=== PATIENT | female | born 1935 | race Caucasian/White ===

== ENCOUNTER → 2016-08-09 | Outpatient (REF) | payer MEDICARE, OTHER | LOC: M LAB REF 12:33 | PROVIDERS: ATTEND Nurse Practitioner Adult Health | DX: E83.52 Hypercalcemia (principal) ==

== ENCOUNTER → 2016-11-02 | Outpatient (CLI) | payer MEDICARE, OTHER ==
--- NOTE | 2016-11-02 09:50 | REPMRS ---
Patient History The patient states she has not had a clinical breast exam in over a year. Patient is postmenopausal. Family history of breast cancer in sister at age 66. Digital Mammo Screening Bilat: November 02, 2016 - Exam #: [id number] Bilateral CC and MLO view(s) were taken. Technologist: Desiree Eason, Technologist Prior study comparison: November 02, 2015, bilateral digital mammo screening bilat performed at [facility]. October 14, 2014, digital woman screen mammo, performed at [facility]. FINDINGS: There are scattered fibroglandular densities. There has been no change in the appearance of the mammogram from the prior studies. There is a mild amount of residual fibroglandular tissue which is fairly symmetric. There is no interval development of dominant mass, architectural distortion, or clustered microcalcification suggestive of malignancy. ASSESSMENT: BI-RADS/ACR category 1 mammogram. Negative. Recommendation Routine screening mammogram in 1 year (for women over age 40). This mammogram was interpreted with the aid of an FDA-approved computer-aided dectection system. Electronically Signed By: Alfredo Monique MD 11/02/16 [id number]
== END ==
LOC: M RAD 08:18
PROVIDERS: ATTEND Nurse Practitioner Adult Health
DX: Z12.31 Encounter for screening mammogram for malignant neoplasm of breast (principal); Z78.0 Asymptomatic menopausal state; Z80.3 Family history of malignant neoplasm of breast

== ENCOUNTER → 2017-07-03 | Outpatient (REF) | payer MEDICARE, OTHER | LOC: M LAB REF 16:27 | DX: N39.0 Urinary tract infection, site not specified (principal) | CPT/HCPCS: 87088; 87186 ==

== ENCOUNTER → 2017-08-16 | Outpatient (REF) | payer MEDICARE, OTHER | LOC: M LAB REF 10:06 | DX: N39.0 Urinary tract infection, site not specified (principal) | CPT/HCPCS: 87186 ==

== ENCOUNTER → 2017-08-18 | Outpatient (CLI) | payer MEDICARE, OTHER | LOC: M WUC 15:30 | DX: R10.32 Left lower quadrant pain (principal) | CPT/HCPCS: 74021 ==

== ENCOUNTER → 2017-12-04 | Outpatient (CLI) | payer MEDICARE, OTHER | LOC: M RAD 09:38 | DX: Z12.31 Encounter for screening mammogram for malignant neoplasm of breast (principal) | CPT/HCPCS: 77067 ==

== ENCOUNTER → 2018-09-07 | Outpatient (REF) | payer MEDICARE, OTHER ==
[~2018-09-07] MED LIST: AMLO5TAB6; AUGM875T28 PO; DOXY-350 PO; GUAI1SOL2 PO; HYDR25TAB PO; LOSA25TA14; MONT10TA2; ZITHTAB PO
== END ==
LOC: M LAB REF 12:16
PROVIDERS: ATTEND Physician Assistant
DX: R30.0 Dysuria (principal)

== ENCOUNTER → 2018-09-27 | Outpatient (REF) | payer MEDICARE, OTHER ==
[2018-09-27 19:09] LABS: APPEARANCE, URINE CLEAR (CLEAR); BACTERIA, URINE AUTO 3+ (NEGATIVE); BILIRUBIN, URINE AUTO NEGATIVE (NEGATIVE); BLOOD, URINE BLOOD NEGATIVE (NEGATIVE); COLOR, URINE YELLOW (YELLOW); GLUCOSE, URINE (UA) AUTO NEGATIVE (NEGATIVE); KETONE, URINE AUTO TRACE mg/dL (NEGATIVE); LEUKOCYTE ESTERASE, URINE AUTO 3+ (NEGATIVE); NITRITE, URINE AUTO NEGATIVE (NEGATIVE); PROTEIN, URINE AUTO NEGATIVE (NEGATIVE); RBC, URINE AUTO 9 /HPF (0-3); SQUAMOUS EPITHELIAL CELL UR AU 0 /HPF (0-6); UROBILINOGEN, URINE AUTO 0.2 mg/dL (0.0-2.0); WBC, URINE AUTO 118 /HPF (0-3)
== END ==
LOC: M LAB REF 16:50
PROVIDERS: ATTEND Physician Assistant
DX: N39.0 Urinary tract infection, site not specified (principal)

== ENCOUNTER → 2018-12-11 | Outpatient (CLI) | payer MEDICARE, OTHER ==
--- NOTE | 2018-12-11 13:10 | REPMRS ---
Patient History The patient states she has not had a clinical breast exam in over a year. Family history of breast cancer at age 66 in sister. 3D TOMOSYNTHESIS WAS PERFORMED. The [facility] lifetime risk for breast cancer is 0.7%. Digital Mammo Screening Bilat: December 11, 2018 - Exam #: [id number] Bilateral CC and MLO view(s) were taken. Technologist: Mary Walter, Technologist Prior study comparison: December 04, 2017, bilateral digital mammo screening bilat performed at [facility]. November 02, 2016, bilateral digital mammo screening bilat performed at [facility]. FINDINGS: There are scattered fibroglandular densities. There has been no change in the appearance of the mammogram from the prior studies. There is a mild amount of residual fibroglandular tissue which is fairly symmetric. There is no interval development of dominant mass, architectural distortion, or clustered microcalcification suggestive of malignancy. Assessment: BI-RADS/ACR category 1 mammogram. Negative Mammogram. Recommendation Routine screening mammogram in 1 year (for women over age 40). This mammogram was interpreted with the aid of an FDA-approved computer-aided dectection system. Electronically Signed By: Alfredo Monique MD 12/11/18 [id number]
== END ==
LOC: M RAD 12:27
PROVIDERS: ATTEND Nurse Practitioner Adult Health
DX: Z12.31 Encounter for screening mammogram for malignant neoplasm of breast (principal); Z80.3 Family history of malignant neoplasm of breast

== ENCOUNTER → 2019-12-27 | Outpatient (CLI) | payer MEDICARE, OTHER ==
[~2019-12-27] MED LIST changes: +AMLO1TAB24; -AMLO5TAB6; -MONT10TA2; +MONT10TA4
--- NOTE | 2019-12-27 12:39 | REPMRS ---
Patient History The patient states she has not had a clinical breast exam in over a year. Patient is postmenopausal. Family history of breast cancer at age 66 in sister, colorectal cancer at age 50 or over in mother. No Hormone Replacement Therapy 3D TOMOSYNTHESIS WAS PERFORMED. RADHA Rodriguez. Digital Woman Screen Mammo: December 27, 2019 - Exam #: [id number] Bilateral CC and MLO view(s) were taken. Technologist: Amarilis Ge, Technologist Prior study comparison: December 11, 2018, bilateral digital mammo screening bilat, performed at [facility]. December 04, 2017, bilateral digital mammo screening bilat, performed at [facility]. FINDINGS: There are scattered fibroglandular densities. There has been no change in the appearance of the mammogram from the prior studies. There is a mild amount of residual fibroglandular tissue which is fairly symmetric. There is no interval development of dominant mass, architectural distortion, or clustered microcalcification suggestive of malignancy. Assessment: BI-RADS/ACR category 1 mammogram. Negative Mammogram. Recommendation Routine screening mammogram in 1 year (for women over age 40). This mammogram was interpreted with the aid of an FDA-approved computer-aided dectection system. Electronically Signed By: Alfredo Monique MD 12/27/19 [id number]
--- NOTE | 2019-12-31 15:52 | DEXA ---
AP SPINE L1 - L4 1.190 0.0 1.9 LT FEMUR TOTAL 0.840 -1.3 1.0 LT NECK 0.834 -1.5 1.0 RT FEMUR TOTAL 0.774 -1.9 0.5 RT NECK 0.810 -1.6 0.8 TOTAL BODY TOTAL OTHER COMMENTS: Normal bone densitometry of the spine. There is low bone density of the hips. The density of the spine is increased 5.1% since the initial exam on 09/08/1998. The decreased 1.6% since the most recent exam on 10/14/2014. The density of the left hip has decreased 8.4% since the initial exam on 09/08/1998. The density of the left hip has decreased 9.2% since the most recent exam on 10/14/2014. The density of the right hip has decreased 6.3% since the initial exam on 09/08/1998. The density of the right hip has decreased 11.0% since the most recent exam on 10/14/2014. FOLLOW-UP: Recommendation for the next bone density exam: 2 Years. ALDO
== END ==
LOC: M WHC 10:57
PROVIDERS: ATTEND Nurse Practitioner Adult Health
DX: Z12.31 Encounter for screening mammogram for malignant neoplasm of breast (principal); Z80.3 Family history of malignant neoplasm of breast; Z80.0 Family history of malignant neoplasm of digestive organs; M85.851 Other specified disorders of bone density and structure, right thigh; M85.852 Other specified disorders of bone density and structure, left thigh

== ENCOUNTER 2020-08-01 11:15 | Emergency (ER) | payer MEDICARE, OTHER ==
[~2020-08-01] VITALS: Ht 154.9 cm; Wt 63.6 kg
[~2020-08-01 11:15] MED LIST changes: +HYDR-3490 PO; -HYDR25TAB PO; +MONT10TA10; -MONT10TA4
[2020-08-01] MEDS ORDERED: AMLO1TAB25 PO (11:39)
[2020-08-01] MEDS ORDERED: CENTCHW4 PO (11:39)
[2020-08-01] MEDS ORDERED: CALCTAB89 PO (11:39)
[2020-08-01] MEDS ORDERED: DOXY100T PO (11:39)
[2020-08-01] MEDS ORDERED: ECOT81TA5 PO (11:39)
[2020-08-01] MEDS ORDERED: PRESCAP PO (11:39)
[2020-08-01] MEDS ORDERED: MORPHINE 2 MG/ML 1ML VIAL (J2270) IV PRN (11:45)
[2020-08-01] MEDS: ONDANSETRON 4MG/2ML VIAL IV ONE ×2 (11:45→15:26)
[2020-08-01 11:56] LABS: BASO % 0.4 % (0.0-1.0); EOS # 0.1 10^3/uL (0.0-0.5); EOS % 1.2 % (0.0-3.0); HEMATOCRIT 36.7 % (36.0-47.0); HEMOGLOBIN 12.3 g/dl (12.0-15.5); LYMPH # 2.4 10^3/uL (1.5-5.0); LYMPH % 28.5 % (24.0-44.0); MEAN CORPUSCULAR HEMOGLOBIN 30.4 pg (27.0-33.0); MEAN CORPUSCULAR HGB CONC 33.5 g/dl (32.0-36.5); MEAN CORPUSCULAR VOLUME 90.6 fl (80.0-96.0); MONO # 0.8 10^3/uL (0.0-0.8); NEUTROPHILS # 5.1 10^3/uL (1.5-8.5); NEUTROPHILS % 60.5 % (36.0-66.0); PLATELET COUNT, AUTOMATED 444 10^3/uL (150-450); RED BLOOD COUNT 4.05 10^6/uL (4.00-5.40); WHITE BLOOD COUNT 8.4 10^3/uL (4.0-10.0)
[2020-08-01 12:09] LABS: INR 1.04; PROTHROMBIN TIME 13.8 SECONDS (12.5-14.3)
--- NOTE | 2020-08-01 12:13 | REP ---
INDICATION: CHEST PAIN. COMPARISON: 09/03/2012. TECHNIQUE: Single portable AP view of the chest was performed. FINDINGS: There is no acute infiltrate or pulmonary edema. The heart does not appear to be significantly enlarged. The thoracic aorta is normal in caliber with mild atherosclerotic calcification. The mediastinal silhouette is otherwise unremarkable. IMPRESSION: No acute pulmonary disease. <Electronically signed by Alfredo Monique > 08/01/20 [id number]
[2020-08-01 12:28] LABS: ALBUMIN 3.4 GM/DL (3.2-5.2); ALT/SGPT 21 U/L (12-78); BILIRUBIN,DIRECT 0.2 MG/DL (0.0-0.2); BILIRUBIN,TOTAL 0.8 MG/DL (0.2-1.0); CK-MB VALUE MASS < 1.0 NG/ML (<3.6); CPK CREATINE PHOSPHOKINASE 46 U/L (26-192); LIPASE 130 U/L (73-393); MB/CK RELATIVE INDEX 2.17 (< OR =4); TOTAL PROTEIN 6.4 GM/DL (6.4-8.2); TROPONIN I < 0.02 NG/ML (< 0.10)
[2020-08-01] MEDS ORDERED: ISOVUE-370 76% 100ML VIAL As Ordered ONE (13:11)
--- NOTE | 2020-08-01 13:55 | REP ---
INDICATION: CP. COMPARISON: Radiograph today. TECHNIQUE: CT angiogram chest performed following the intravenous administration of 100 cc of Isovue 370. Sagittal and coronal reconstruction images are performed. FINDINGS: Lungs: There are mild dependent fibro atelectatic changes. There are 2 small bullae in the superior left lower lobe. Mediastinum: No adenopathy. Pulmonary arteries: No evidence of pulmonary embolism. Jennifer: No adenopathy. Axilla: No adenopathy. Pleura: No effusion. Heart: Mildly enlarged. Thoracic aorta: No aneurysm or dissection. Upper abdominal structures: Multiple hypodensities in the liver. These appear to represent cysts, the largest is in the inferior right lobe and measures approximately 9.3 cm in maximum diameter. Multiple subcentimeter hypodensities are too small to accurately characterize. There is a 3.4 cm right renal cyst. Visualized osseous structures: There are mild degenerative changes of the spine without compression deformity. IMPRESSION: No CT evidence of pulmonary embolism. No infiltrate seen. <Electronically signed by Alfredo Monique > 08/01/20 [id number]
[2020-08-01] MEDS ORDERED: ACETAMINOPHEN 500 MG TAB PO ONE (14:10)
--- NOTE | 2020-08-01 15:17 | ECGEPIP ---
[facility] - ED Test Date: 2020-08-01 Pat Name: CHESTER LUJAN Department: Room: - Gender: Female Industrial Designer: JANN : 1935 Requested By: Roxi Davis Order Number: [id number] Reading MD: Roxi Davis Measurements Intervals Hoffman Rate: 73 P: 64 WY: 156 QRS: -12 QRSD: 86 T: 21 QT: 388 QTc: 427 Interpretive Statements Normal sinus rhythm irbbb No prior Electronically Signed on 08-01-2020 15:16:52 EDT by Roxi Davis
--- NOTE | 2020-08-01 15:20 | ECGEPIP ---
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
[2020-08-01 15:42] LABS: CK-MB VALUE MASS < 1.0 NG/ML (<3.6); CPK CREATINE PHOSPHOKINASE 43 U/L (26-192); MB/CK RELATIVE INDEX 2.33 (< OR =4); TROPONIN I < 0.02 NG/ML (< 0.10)
[2020-08-01 15:55] VITALS: BP 154/66
== END 2020-08-01 16:02 | disposition home or self-care (01) ==
LOC: M ED 11:15
DX: R07.9 Chest pain, unspecified (principal); I45.10 Unspecified right bundle-branch block; I10 Essential (primary) hypertension; Z86.73 Personal history of transient ischemic attack (TIA), and cerebral infarction without residual deficits; Z87.891 Personal history of nicotine dependence; Z79.899 Other long term (current) drug therapy
CPT/HCPCS: 36415; 71045; 71275; 80047; 80076; 82550; 82553; 83690; 84484; 85025; 85610; 93005; 93041; 94760; 99284; Q9967

== ENCOUNTER → 2021-10-05 | Outpatient (REF) | payer MEDICARE, OTHER ==
[~2021-10-05] MED LIST changes: +AMLO1TAB25 PO; +CALCTAB89 PO; +CENTCHW4 PO; +DOXY100T PO; +ECOT81TA5 PO; +LOSA25TA13; -LOSA25TA14; -MONT10TA10; +MONT10TA97; +PRESCAP PO
== END ==
LOC: M LAB REF 12:24
PROVIDERS: ATTEND Nurse Practitioner Adult Health
DX: D75.839 Thrombocytosis, unspecified (principal)

== ENCOUNTER → 2022-12-28 | Outpatient (REF) | payer MEDICARE, OTHER ==
[~2022-12-28] MED LIST changes: -DOXY-350 PO; +DOXY-444 PO
== END ==
LOC: M LAB REF 16:40
PROVIDERS: ATTEND Nurse Practitioner Family
DX: R30.0 Dysuria (principal)

== ENCOUNTER → 2023-12-07 | Outpatient (REF) | payer MEDICARE, OTHER ==
[~2023-12-07] MED LIST changes: +DOXY-440 PO; -DOXY-444 PO
== END ==
LOC: M LAB REF 16:18
PROVIDERS: ATTEND Nurse Practitioner Family
DX: R30.0 Dysuria (principal)